=== PATIENT | male | born 1965 | race Caucasian/White ===

== ENCOUNTER 2023-05-04 09:32 | Inpatient (IN) | payer MEDICAID, OTHER ==
[~2023-05-04] VITALS: Ht 165.1 cm; Wt 74.4 kg
[2023-05-04 09:34] VITALS: O2SAT 100
[2023-05-04 10:29] LABS: BASOPHILS % 0.6 % (0.0-2.0); EOSINOPHILS % 1.6 % (0.0-5.0); HEMATOCRIT. 45.9 % (42.0-52.0); HEMOGLOBIN. 15.2 g/dL (14.0-18.0); LYMPHOCYTES % 23.1 % (20.0-50.0); MEAN CORPUSCULAR HEMOGLOBIN 29.6 pg (28.0-32.0); MEAN CORPUSCULAR HGB CONC 33.2 g/dL (31.0-37.0); MEAN CORPUSCULAR VOLUME 89.3 fL (80.0-94.0); MEAN PLATELET VOLUME 8.4 fl (7.4-10.4); NEUTROPHILS % 65.7 % (40.0-76.0); PLATELET 242 x1000/uL (130-400); RED BLOOD CELL COUNT 5.14 mill/uL (4.7-6.1); RED CELL DISTRIBUTION WIDTH 14.3 % (11.6-14.6); WHITE BLOOD COUNT 6.6 x1000/uL (4.5-11.0)
[2023-05-04 10:44] LABS: ALANINE AMINOTRANSFERASE 34 IU/L (10-49); ALBUMIN 4.5 g/dL (3.2-4.8); ASPARTATE AMINOTRANSFERASE 38 IU/L (<34); BILIRUBIN TOTAL 0.5 mg/dL (0.1-1.0); CALCIUM 9.1 mg/dL (8.7-10.4); CARBON DIOXIDE 31 mEq/L (21-32); CHLORIDE 104 mEq/L (98-107); CREATININE 0.8 mg/dL (0.6-1.3); GLUCOSE 94 mg/dL (70-105); POTASSIUM 4.4 mEq/L (3.5-5.1); PROTEIN TOTAL 7.6 g/dL (6.0-8.3); SODIUM 141 mEq/L (136-145); TROPONIN I HIGH SENSITIVITY < 4 ng/L (3.0-53); UREA NITROGEN BLOOD 11 mg/dL (9-23)
[2023-05-04] MEDS ORDERED: SODIUM CHLORIDE 0.9% 1000ML BAG (SEPSIS BOLUS) IV ONE (11:00)
[2023-05-04] MEDS ORDERED: CEFTRIAXONE 1GM PREMIX 50 ML IV ONE (11:00)
[2023-05-04 12:56] LABS: CLARITY URINE CLEAR (CLEAR); COLOR URINE YELLOW (YELLOW); GLUCOSE URINE NEGATIVE (NEGATIVE); KETONES URINE NEGATIVE (NEGATIVE); LEUKOCYTE ESTERASE URINE NEGATIVE (NEGATIVE); NITRITE URINE NEGATIVE (NEGATIVE); OCCULT BLOOD URINE NEGATIVE (NEGATIVE); PROTEIN URINE NEGATIVE (NEGATIVE); UROBILINOGEN URINE 0.2 E.U./dL (0.2-1.0)
[2023-05-04 16:50] VITALS: BP 127/71; PULSE 58; RESP 18; TEMP 97
[2023-05-04 17:00] VITALS: BP 127/71; PULSE 58; RESP 17; TEMP 97
[2023-05-04] MEDS ORDERED: FISH1CAP34 PO (17:19)
[2023-05-04] MEDS ORDERED: OMEP-265 PO (17:19)
[2023-05-04] MEDS ORDERED: DOCUSATE SODIUM 100MG CAPSULE PO PRN (17:45)
[2023-05-04] MEDS ORDERED: MAGNESIUM/ALUMINUM HYDROXIDE/SIMETHICONE 30ML UDC PO PRN (17:45)
[2023-05-04] MEDS ORDERED: GUAIFENESIN 200MG/10ML SUGAR FREE UDC PO PRN (17:45)
[2023-05-04] MEDS ORDERED: ACETAMINOPHEN 325MG TABLET PO PRN ×2 (17:45)
[2023-05-04] MEDS ORDERED: IPRATROPIUM/ALBUTEROL 0.5-3(2.5)MG/3ML NEB HHN PRN (17:45)
[2023-05-04] MEDS ORDERED: CLONIDINE 0.1MG TABLET PO PRN (17:45)
[2023-05-04] MEDS ORDERED: KETOROLAC 15MG/ML VIAL IV PRN (18:00)
[2023-05-04 20:00] VITALS: BP 107/66; PULSE 61; RESP 18; TEMP 97.9
[2023-05-04] MEDS: OMEPRAZOLE 20MG CAPSULE EXTENDED RELEASE PO SCH (20:56)
[2023-05-04] MEDS ORDERED: ENOXAPARIN 40MG/0.4ML SYR SUBCUT SCH (21:00)
[2023-05-04 22:07] LABS: CREATINE KINASE 170 IU/L (46-171); CREATINE KINASE MB FRACTION 2.3 ng/mL (0.5-3.6); TROPONIN I HIGH SENSITIVITY 9 ng/L (3.0-53)
[2023-05-05] VITALS: BP 99/58; PULSE 69; RESP 18; TEMP 98.1
[2023-05-05 04:00] VITALS: BP 99/58; PULSE 69; RESP 18; TEMP 98.1
[2023-05-05] MEDS: OMEPRAZOLE 20MG CAPSULE EXTENDED RELEASE PO SCH (04:51)
[2023-05-05 06:20] LABS: BASOPHILS % 0.7 % (0.0-2.0); EOSINOPHILS % 2.6 % (0.0-5.0); HEMATOCRIT. 42.5 % (42.0-52.0); HEMOGLOBIN. 14.4 g/dL (14.0-18.0); LYMPHOCYTES % 29.3 % (20.0-50.0); MEAN CORPUSCULAR HEMOGLOBIN 30.1 pg (28.0-32.0); MEAN CORPUSCULAR HGB CONC 33.9 g/dL (31.0-37.0); MEAN CORPUSCULAR VOLUME 88.7 fL (80.0-94.0); MEAN PLATELET VOLUME 8.2 fl (7.4-10.4); MONOCYTES % 10.3 % (2.0-8.0); NEUTROPHILS % 57.1 % (40.0-76.0); PLATELET 233 x1000/uL (130-400); RED CELL DISTRIBUTION WIDTH 14.3 % (11.6-14.6); WHITE BLOOD COUNT 5.4 x1000/uL (4.5-11.0)
[2023-05-05 06:41] LABS: ALANINE AMINOTRANSFERASE 26 IU/L (10-49); ASPARTATE AMINOTRANSFERASE 27 IU/L (<34); BILIRUBIN TOTAL 0.5 mg/dL (0.1-1.0); CALCIUM 8.8 mg/dL (8.7-10.4); CARBON DIOXIDE 29 mEq/L (21-32); CHLORIDE 103 mEq/L (98-107); CHOLESTEROL 177 mg/dL (<200); CREATININE 0.9 mg/dL (0.6-1.3); GLUCOSE 97 mg/dL (70-105); HDL CHOLESTEROL 40 mg/dL (>55); LDL CHOLESTEROL 117 mg/dL (5-100); POTASSIUM 3.9 mEq/L (3.5-5.1); PROTEIN TOTAL 6.8 g/dL (6.0-8.3); SODIUM 140 mEq/L (136-145); T4 FREE 0.91 ng/dL (0.89-1.76); THYROID STIMULATING HORMONE 8.29 uIU/mL (0.55-4.78); TRIGLYCERIDE 140 mg/dL (0-150); UREA NITROGEN BLOOD 10 mg/dL (9-23)
[2023-05-05 08:00] VITALS: BP 100/65; PULSE 80; RESP 18; TEMP 97.9
[2023-05-05] MEDS ORDERED: IOHEXOL-350 100 ML BOTTLE ONE (11:09)
[2023-05-05 12:00] VITALS: BP 108/72; PULSE 80; RESP 18; TEMP 97.9
[2023-05-05 12:49] LABS: *AMPHETAMINES SCREEN URINE NEGATIVE (NEGATIVE); *BARBITURATES SCREEN URINE NEGATIVE (NEGATIVE); *BENZODIAZEPINES SCREEN URINE NEGATIVE (NEGATIVE); *COCAINE SCREEN URINE NEGATIVE (NEGATIVE); CANNABINOID URINE SCREEN NEGATIVE (NEGATIVE); ECSTASY MDMA SCREEN URINE NEGATIVE (NEGATIVE); METHADONE URINE SCREEN Neg (NEGATIVE); OPIATES URINE SCREEN NEGATIVE (NEGATIVE); PHENCYCLIDINE URINE SCREEN NEGATIVE (NEGATIVE)
[2023-05-05 15:18] VITALS: BP 108/72; PULSE 61; TEMP 98.1
== END 2023-05-05 17:25 | disposition home or self-care (01) | DRG 243 ==
LOC: ER 09:32 → EDBEDREQ 11:01 → 5WST 15:18 → EDBEDREQTM 15:38 → EDBEDREQ 15:38
PROVIDERS: ADMIT Preventive Medicine Clinical Informatics; ATTEND Preventive Medicine Clinical Informatics
DX: K21.9 Gastro-esophageal reflux disease without esophagitis (principal); M94.0 Chondrocostal junction syndrome [Tietze]; Z85.028 Personal history of other malignant neoplasm of stomach; Z92.21 Personal history of antineoplastic chemotherapy
CPT/HCPCS: 36415; 71045; 71275; 74174; 80053; 80061; 80305; 81003; 82550; 82553; 83605; 84145; 84439; 84443; 84484; 85025; 85379; 93005; 93306; 97161; 97166; 99291; J0696; J1650; J7030; Q9967

== ENCOUNTER 2024-09-12 10:23 | Emergency (ER) | payer MEDICAID ==
[~2024-09-12] VITALS: Ht 167.6 cm; Wt 77.1 kg
[~2024-09-12 10:23] MED LIST: FISH1CAP34 PO; OMEP-265 PO
[2024-09-12 10:25] VITALS: BP 118/69; PULSE 64; RESP 16; TEMP 37.1; O2SAT 100
[2024-09-12] MEDS ORDERED: CIPR1DRO2 RIGHT EAR (11:14)
== END 2024-09-12 11:31 | disposition home or self-care (01) ==
LOC: ER 10:23
DX: H61.21 Impacted cerumen, right ear (principal)
CPT/HCPCS: 99283